=== PATIENT | male | born 1955 | race African-American/Black ===

== ENCOUNTER → 2017-09-11 | Day surgery (SDC) | payer BC ==
[~2017-09-11] MED LIST: BUPIVACAINE HCL PF 0.25% 30 ML VIAL ONE; KETOROLAC TROMETHAMINE 30 MG/ML (IVP) VIAL IV PUSH ONE; LACTATED RINGER'S 1000 ML INJ 1,000 ML ONE; MIDAZOLAM HCL 2 MG/2 ML VIAL ONE; ONDANSETRON HCL 4 MG/2 ML VIAL IV PUSH ONE; PROPOFOL 200 MG/20 ML AMP IV ONE; ceFAZolin 2 GM PREMIX 50 ML ONE
--- NOTE | 2017-09-14 08:36 | MP ---
cc: BELA KAPOOR DP DATE OF SURGERY: 09/11/2017 PREOPERATIVE DIAGNOSIS Fifth MPJ exostosis with soft tissue mass. POSTOPERATIVE DIAGNOSIS Fifth MPJ exostosis with soft tissue mass. PROCEDURE PERFORMED Right fifth MPJ exostectomy with excision of painful mass deep plantar foot. SPECIMEN Soft tissue 1.5 cm x 4.5 cm with approximately 6 mm of depth. ESTIMATED BLOOD LOSS Less than 30 mL. TOURNIQUET TIME Under 30 minutes. Tourniquet setting at 215 mmHg of the patient's ankle. INJECTABLES 10 ccs of 0.25% Marcaine plain. JUSTIFICATION FOR PROCEDURE This is a pleasant 62-year-old male with chronic pain and a worsening bone spur of the plantar aspect of his foot and reactive callus with a deep core resembling a wart, possible soft tissue tumor/mass. We devised a plan to move forward with excision of mass and debridement of bone to resolve his condition. The patient understood there is a possibility of wound dehiscence, return of mass, need for more surgery at a later date. No guarantees were given or implied regarding the outcome. PROCEDURE IN DETAIL Under mild sedation the patient was brought to the operating room, placed on the operative table in the supine position. Following the induction of general anesthesia, local anesthesia was obtained about the right forefoot utilizing standard block fashion. Right foot was then scrubbed, prepped and draped in the usual aseptic fashion. The foot was elevated, exsanguinated, the previously placed midcalf tourniquet was inflated to 215 mmHg. An elliptical incision was made in the plantar aspect of the patient's fifth metatarsal encompassing two core callus punctate nuclei type lesions. This was down to fascia. This was an incision fishmouth type and the tumor was then sent for pathological analysis. There was no deep extension beyond the fascial plane. Sharp and blunt dissection was then carried down. A linear incision was made being careful not to violate the flexor. A linear capsulotomy was performed allowing for visualization of a prominent plantar condyle of the fifth MPJ. This was then transected utilizing power instrumentation and rongeur to a smooth bony contour. The wound was flushed with copious amounts of normal saline, capsule and deep fascia was closed utilizing Vicryl, skin was closed utilizing Nylon. Upon relieving the tourniquet there was a prompt hyperemic response to all digits without any delayed capillary refill time. A bulky bandage was placed. The patient was transferred from OR to PACU with all vital signs stable. The patient is non-weightbearing. He will ice, elevate, I will see the patient in 3-5 days. ADRIA Boss/SYBIL /1:40 PM /8:20 AM
== END | disposition home or self-care (01) ==
LOC: ESDC 11:22
PROVIDERS: ATTEND Podiatrist Foot & Ankle Surgery
DX: M77.9 Enthesopathy, unspecified (principal); R22.41 Localized swelling, mass and lump, right lower limb
CPT/HCPCS: 01470; 01480; 28041; 28110; 88305; J0690; J1885; J2250; J2405; J3010; J7120